=== PATIENT | female | born 1990 | race Caucasian/White ===

== ENCOUNTER 2022-09-19 09:12 | Inpatient (IN) | payer OTHER ==
[2022-09-19] MEDS ORDERED: SODIUM CHLORIDE 0.9% 1,000 ML IV STA (09:50)
[2022-09-19] MEDS ORDERED: ONDANSETRON 4 MG/2 ML VIAL IVP STA (09:50)
[2022-09-19] MEDS ORDERED: METOCLOPRAMIDE 5 MG/ML 2 ML VIAL IVP STA (10:18)
[2022-09-19] MEDS ORDERED: diphenhydrAMINE 50 MG/ML 1 ML VIAL IVP STA (10:18)
[2022-09-19 10:26] LABS: ALT 12 U/L (4-34); AST 19 U/L (14-36); African American GFR (CKD) >90 (>60 ml/min/1.73 sqM); Albumin 3.7 g/dL (3.5-5.0); Alkaline Phosphatase 47 U/L (38-126); Amylase 59 U/L (30-110); Anion Gap 13 mmol/L; Blood Urea Nitrogen 11 mg/dL (7-17); Calcium 8.6 mg/dL (8.4-10.2); Carbon Dioxide 18 mmol/L (22-30); Chloride 105 mmol/L (98-107); Glucose 207 mg/dL (74-99); Lipase 12 U/L (23-300); Non-African American GFR(CKD) >90 (>60 ml/min/1.73 sqM); Potassium 3.6 mmol/L (3.5-5.1); Sodium 136 mmol/L (137-145); Total Bilirubin 0.9 mg/dL (0.2-1.3); Total Protein 6.5 g/dL (6.3-8.2)
[2022-09-19 10:47] LABS: Basophils % (A) 0 %; Eosinophils % (A) 0 %; HCT 33.5 % (34.0-46.0); HGB 11.7 gm/dL (11.4-16.0); Lymphocytes % (A) 8 %; MCH 28.8 pg (25.0-35.0); MCHC 34.9 g/dL (31.0-37.0); MCV 82.5 fL (80.0-100.0); Mean Platelet Volume 8.6; Monocytes # (A) 0.2 k/uL (0-1.0); Monocytes % (A) 2 %; Neutrophils # (A) 11.3 k/uL (1.3-7.7); Neutrophils % (A) 90 %; Platelet Count 154 k/uL (150-450); RBC 4.06 m/uL (3.80-5.40); RDW 14.5 % (11.5-15.5); WBC 12.6 k/uL (3.8-10.6)
--- NOTE | 2022-09-19 11:35 | US ---
EXAMINATION TYPE: Transabdominal DATE OF EXAM: 09/19/2022 11:16 AM COMPARISON: NONE CLINICAL INDICATION: Female, 32 years old with history of pain; N/V EXAM PERFORMED: Transabdominal (TA) EXAM MEASUREMENTS: GESTATIONAL AGE / DATING Physician Established: Not yet established Dates by LMP: LMP unknown Dates by First Scan: No previous this is first scan Dates by Current Scan for: (13 weeks/3 days) EDC: 03/24/2023 MATERNAL ANATOMY Uterus: 15.3 x 6.9 x 12.2cm Right Ovary: 3.4 x 1.2 x 2.4cm Left Ovary: 3.6 x 2.2 x 2.3cm Post CDS / Adnexa: wnl Presence of free fluid: no Presence of corpus luteal cyst: not seen Presence of subchorionic bleed: no GESTATION / SURVEY CRL: 7.2cm (13 weeks/3 days) Yolk Sac (normal less than 6mm): not seen Heart Rate: 162 bpm Rhythm: Normal IUP: Viable IUP Single live intrauterine gestation. IMPRESSION: Single live intrauterine gestation with estimated gestational age of 13 weeks 3 days and estimated du e date of 03/24/2023.
[2022-09-19 12:31] LABS: Appearance,Urine Clear (Clear); Bilirubin,Urine Negative (Negative); Blood,Urine Negative (Negative); Color,Urine Yellow; Glucose,Urine (UA) 4+ (Negative); Leukocyte Esterase,Urine Negative (Negative); Mucus,Urine Rare /hpf; Nitrite,Urine Negative (Negative); Protein,Urine 1+ (Negative); RBC,Urine 1 /hpf (0-5); Specific Gravity,Urine 1.036 (1.001-1.035); Squamous Epithelial Cell,Urine 6 /hpf (0-4); Urobilinogen,Urine <2.0 mg/dL (<2.0); WBC,Urine 1 /hpf (0-5)
[2022-09-19 12:55] LABS: Ketones,Urine 4+ (Negative)
[2022-09-19] MEDS ORDERED: SODIUM CHLORIDE 0.9% 500 ML 500 ML IV STA (13:17)
--- NOTE | 2022-09-19 13:19 | ED ---
General Adult HPI - General Chief complaint: Nausea/Vomiting/Diarrhea Stated complaint: vomiting Time Seen by Provider: 09/19/22 09:27 Source: patient, EMS Mode of arrival: EMS Limitations: no limitations - History of Present Illness Initial comments: 32-year-old female with IDDM type 1 on insulin pump presents to the emergency room for a chief complaint of nausea vomiting. She is . Patient currently , she estimates about 2 months. Patient reports that she has had nausea and vomiting for about a week now. She also admits to discomfort throughout the whole abdomen. She denies any vaginal bleeding. States her blood sugars have been stable in the 200's. She was see at [facility], discharged home with Reglan which she has not yet taken. Patient has no other complaints at this time including shortness of breath, chest pain, abdominal pain, headache, or visual changes. - Related Data Previous Rx's Medication Instructions Recorded Citalopram Hydrobromide [CeleXA] 20 mg PO DAILY@1200 #30 tab 04/26/15 Ibuprofen [Motrin] 600 mg PO Q8HR PRN #15 tab 04/26/15 Allergies Allergy/AdvReac Type Severity Reaction Status Date / Time No Known Allergies Allergy Verified 04/24/15 16:11 Review of Systems ROS Statement: Those systems with pertinent positive or pertinent negative responses have been documented in the HPI. ROS Other: All systems not noted in ROS Statement are negative. Past Medical History Past Medical History: No Reported History Additional Past Medical History / Comment(s): Patient gave to a 23 week o ld in 2011 that shortly after . She also had an infant in 2013 for possible SIDS. History of Any Multi-Drug Resistant Organisms: None Reported Past Surgical History: Adenoidectomy, Section, Tonsillectomy Additional Past Surgical History / Comment(s): cyst removed from ovary Past Anesthesia/Blood Transfusion Reactions: No Reported Reaction Past Psychological History: Anxiety, Depression Past Alcohol Use History: Occasional Past Drug Use History: Marijuana - Past Family History Father Family Medical History: No Reported History Additional Family Medical History / Comment(s): Patient has no contact with her father. Mother Family Medical History: No Reported History Additional Family Medical History / Comment(s): Mother is alive at age 42 with no major medical problems. Brother(s) Additional Family Medical History / Comment(s): Patient has 2 brothers which were asthmaticus children. Patient has one sister that she has no contact with and one sister that is healthy. Patient currently has no living children. General Exam Limitations: no limitations General appearance: alert, in no apparent distress Head exam: Present: atraumatic Eye exam: Present: normal appearance, PERRL, EOMI. Absent: scleral icterus, conjunctival injection ENT exam: Present: normal exam, mucous membranes moist Neck exam: Present: normal inspection, full ROM. Absent: tenderness Respiratory exam: Present: normal lung sounds bilaterally. Absent: respiratory distress, wheezes Cardiovascular Exam: Present: regular rate, normal rhythm, normal heart sounds GI/Abdominal exam: Present: soft, normal bowel sounds. Absent: distended, tenderness Course Vital Signs 09/19/22 09/19/22 09:16 13:23 Temperature 97.2 F L Pulse Rate 88 91 Respiratory 18 18 Rate Blood Pressure 109/83 96/64 O2 Sat by Pulse 100 98 Oximetry Medical Decision Making - Medical Decision Making Vitals are stable. CBC shows a white count of 4.6 likely reactive to vomiting. CMP does show some dehydration with a CO2 of 18. Glucose stable at 207. 4+ glucose and ketones in the urine likely secondary to starvation ketosis given normal glucose and vitals. Ultrasound was obtained which shows a 13 week gestation. Patient has not seen OB yet but has an appointment on September 24 in [place]. Patient was given 1.5 L of fluid and nausea medicine. She is feeling better. She was able to tolerate by mouth intake. Case was discussed with Dr Rodriguez, [facility] physicians. At this time feels patient is a candidate for ou tpatient management with strict return parameters to the hospital for admission if symptoms worsen. Patient does have Reglan at home that she will start taking. She will continue to monitor her glucose. She will return here for worsening symptoms. Was pt. sent in by a medical professional or institution (, PA, MANAGER SUSTAINABILITY, urgent care, hospital, or prison...) When possible be specific @ -No Did you speak to anyone other than the patient for history (EMS, parent, family, police, friend...)? What history was obtained from this source @ -No Did you review nursing and triage notes (agree or disagree)? Why? @ -I reviewed and agree with nursing and triage notes Were old charts reviewed (outside hosp., previous admission, EMS record, old EKG, old radiological studies, urgent care reports/EKG's, prison records)? Report findings @ -No old charts were reviewed Differential Diagnosis (chest pain, altered mental status, abdominal pain women, abdominal pain men, vaginal bleeding, weakness, fever, dyspnea, syncope, headache, dizziness, GI bleed, back pain, seizure, CVA, palpatations, mental health)? @ -Differential Abdominal Pain Women: Appendicitis, Cholecystitis, diverticulosis, ischemic bowel, pancreatitis, hepatitis, UTI, gastroenteritis, AAA, incarcerated hernia, bowel obstruction, c onstipation, inflammatory bowel, hepatitis, peptic ulcer disease, splenic infarction, perforated viscus, vulvitis, ovarian torsion, PID, kidney stone, placenta abruption, miscarriage, ectopic this is not meant to be an all-inclusive list EKG interpreted by me (3pts min.). @ -As above X-rays interpreted by me (1pt min.). @ -None done CT interpreted by me (1pt min.). @ -None done U/S interpreted by me (1pt. min.). @ -OB US What testing was considered but not performed or refused? (CT, X-rays, U/S, labs)? Why? @ -None What meds were considered but not given or refused? Why? @ -opioids for pain, not given because of . Patient refused Zofran, preferred Reglan. Did you discuss the management of the patient with other professionals (professionals i.e. , PA, MANAGER SUSTAINABILITY, lab, RT, psych nurse, forensic social worker, warehouse stocker, teacher, special weapons and tactics officer, telephonic case manager)? Give summary @ -Dr Murillo, Dr Rodriguez Was smoking cessation discussed for >3mins.? @ -No Was critical care preformed (if so, how long)? @ -No Were there social determinants of health that impacted care today? How? (Homelessness, low income, unemployed, alcoholism, drug addiction, transportation, low edu. Level, literacy, decrease access to med. care, nursing home, rehab)? @ -No Was there de-escalation of care discussed even if they declined (Discuss DNR or withdrawal of care, Hospice)? DNR status @ -No What co-morbidities impacted this encounter? (DM, HTN, Smoking, COPD, CAD, Cancer, CVA, ARF, Chemo, Hep., AIDS, mental health diagnosis, sleep apnea, morbid obesity)? @ -DM Was patient admitted / discharged? Hospital course, mention meds given and route, prescriptions, significant lab abnormalities, going to OR and other pertinent info. @ -see above Undiagnosed new problem with uncertain prognosis? @ -No Drug Therapy requiring intensive monitoring for toxicity (Heparin, Nitro, Insulin, Cardizem)? @ -No Were any procedures done? @ -No Diagnosis/symptom? @ -dehydration, NV during Acute, or Chronic, or Acute on Chronic? @ -acute Uncomplicated (without systemic symptoms) or Complicated (systemic symptoms)? @ -complicated Side effects of treatment? @ -No Exacerbation, Progression, or Severe Exacerbation? @ -No Poses a threat to life or bodily function? How? (Chest pain, USA, NE, pneumonia, PE, COPD, DKA, ARF, appy, cholecystitis, CVA, Diverticulitis, Homicidal, Suicidal, threat to staff... and all critical care pts) @ -No - Lab Data Result diagrams: 09/19/22 10:03 09/19/22 10:03 Lab Results 09/19/22 09/19/22 09/19/22 Range/Units 10:03 10:03 10:03 WBC 12.6 H (3.8-10.6) k/uL RBC 4.06 (3.80-5.40) m/uL Hgb 11.7 (11.4-16.0) gm/dL Hct 33.5 L (34.0-46.0) % MCV 82.5 (80.0-100.0) fL MCH 28.8 (25.0-35.0) pg MCHC 34.9 (31.0-37.0) g/dL RDW 14.5 (11.5-15.5) % Plt Count 154 (150-450) k/uL MPV 8.6 Neutrophils % 90 % Lymphocytes % 8 % Monocytes % 2 % Eosinophils % 0 % Basophils % 0 % Neutrophils # 11.3 H (1.3-7.7) k/uL Lymphocytes # 1.0 (1.0-4.8) k/uL Monocytes # 0.2 (0-1.0) k/uL Eosinophils # 0.0 (0-0.7) k/uL Basophils # 0.0 (0-0.2) k/uL Sodium 136 L (137-145) mmol/L Potassium 3.6 (3.5-5.1) mmol/L Chloride 105 (98-107) mmol/L Carbon Dioxide 18 L (22-30) mmol/L Anion Gap 13 mmol/L BUN 11 (7-17) mg/dL Creatinine 0.34 L (0.52-1.04) mg/dL Est GFR (CKD-EPI)AfAm >90 (>60 ml/min/1.73 sqM) Est GFR (CKD-EPI)NonAf >90 (>60 ml/min/1.73 sqM) Glucose 207 H (74-99) mg/dL Calcium 8.6 (8.4-10.2) mg/dL Total Bilirubin 0.9 (0.2-1.3) mg/dL AST 19 (14-36) U/L ALT 12 (4-34) U/L Alkaline Phosphatase 47 (38-126) U/L Total Protein 6.5 (6.3-8.2) g/dL Albumin 3.7 (3.5-5.0) g/dL Amylase 59 (30-110) U/L Lipase 12 L (23-300) U/L HCG, Quant mIU/mL Urine Color Yellow Urine Appearance Clear (Clear) Urine pH 6.0 (5.0-8.0) Ur Specific [place] 1.036 H (1.001-1.035) Urine Protein 1+ H (Negative) Urine Glucose (UA) 4+ H (Negative) Urine Ketones 4+ H (Negative) Urine Blood Negative (Negative) Urine Nitrite Negative (Negative) Urine Bilirubin Negative (Negative) Urine Urobilinogen <2.0 (<2.0) mg/dL Ur Leukocyte Esterase Negative (Negative) Urine RBC 1 (0-5) /hpf Urine WBC 1 (0-5) /hpf Ur Squamous Epith Cells 6 H (0-4) /hpf Urine Mucus Rare H (None) /hpf 09/19/22 Range/Units 10:03 WBC (3.8-10.6) k/uL RBC (3.80-5.40) m/uL Hgb (11.4-16.0) gm/dL Hct (34.0-46.0) % MCV (80.0-100.0) fL MCH (25.0-35.0) pg MCHC (31.0-37.0) g/dL RDW (11.5-15.5) % Plt Count (150-450) k/uL MPV Neutrophils % % Lymphocytes % % Monocytes % % Eosinophils % % Basophils % % Neutrophils # (1.3-7.7) k/uL Lymphocytes # (1.0-4.8) k/uL Monocytes # (0-1.0) k/uL Eosinophils # (0-0.7) k/uL Basophils # (0-0.2) k/uL Sodium (137-145) mmol/L Potassium (3.5-5.1) mmol/L Chloride (98-107) mmol/L Carbon Dioxide (22-30) mmol/L Anion Gap mmol/L BUN (7-17) mg/dL Creatinine (0.52-1.04) mg/dL Est GFR (CKD-EPI)AfAm (>60 ml/min/1.73 sqM) Est GFR (CKD-EPI)NonAf (>60 ml/min/1.73 sqM) Glucose (74-99) mg/dL Calcium (8.4-10.2) mg/dL Total Bilirubin (0.2-1.3) mg/dL AST (14-36) U/L ALT (4-34) U/L Alkaline Phosphatase (38-126) U/L Total Protein (6.3-8.2) g/dL Albumin (3.5-5.0) g/dL Amylase (30-110) U/L Lipase (23-300) U/L HCG, Quant 251557.0 mIU/mL Urine Color Urine Appearance (Clear) Urine pH (5.0-8.0) Ur Specific [place] (1.001-1.035) Urine Protein (Negative) Urine Glucose (UA) (Negative) Urine Ketones (Negative) Urine Blood (Negative) Urine Nitrite (Negative) Urine Bilirubin (Negative) Urine Urobilinogen (<2.0) mg/dL Ur Leukocyte Esterase (Negative) Urine RBC (0-5) /hpf Urine WBC (0-5) /hpf Ur Squamous Epith Cells (0-4) /hpf Urine Mucus (None) /hpf Disposition Clinical Impression: Nausea and vomiting during , Dehydration Disposition: HOME SELF-CARE Condition: Good Instructions (If sedation given, give patient instructions): Hyperemesis Gravidarum (ED) Additional Instructions: Please follow up with PCP in 1-2 days. Please see your OBGYN at your scheduled appointment 09/24. Return to the ER for worsening symptoms. Is patient prescribed a controlled substance at d/c from ED?: No Referrals: Aime Fairchild MD [STAFF PHYSICIAN] - 1-2 days Time of Disposition: 14:21
[2022-09-19] MEDS ORDERED: NALOXONE 0.4 MG/ML 1 ML VIAL IV PRN (15:05)
[2022-09-19] MEDS: SODIUM CHLORIDE 0.9% 1,000 ML IV SCH ×2 (15:51→23:55)
[2022-09-19] MEDS ORDERED: DEXTROSE 50% SYRINGE 50 ML IVP PRN ×2 (15:55)
--- NOTE | 2022-09-19 16:43 | P.HPIM ---
History of Present Illness H&P Date: 09/19/22 Patient is a 32-year-old female with history of type 1 diabetes on insulin pump, depression presenting with severe nausea and vomiting. Patient is currently 13 weeks . She is unable to tolerate any oral intake. She claims that her nausea and vomiting started about 1 week. She has significant abdominal pain, chest pain with vomiting. She claims that she only has bowel movements every 2 weeks. She denies any urinary complaints. Her last meal was yesterday when she was able to tolerate eating a banana and some water. She denies any difficulty breathing, fevers, chills, recent travel history, or sick contacts. She normally uses her insulin pump, has a continuous glucose monitor, and bases her insulin on carbs intake as well as current blood sugars. Most of her blood sugar has been all over the place over the last week. In the ED, temperature was 97.2, pulse 88, respiratory rate 18, blood pressure 109/83, saturating at 100% on room air. WBC 12.6, platelet 154, hemoglobin 11.7, sodium 136, bicarbonate 18, creatinine 0.34, glucose 207, urine positive f or glucose and ketones. ultrasound shows single live intrauterine gestation estimated 13 weeks 3 days. Patient was given IV fluids in the ED, Reglan, Benadryl, and Zofran. Patient continues to have vomiting. Patient to be admitted for persistent nausea and vomiting, dehydration, inability to tolerate oral intake, will be will be consulted. Pertinent positives and negatives as discussed in HPI, a complete review of systems was performed and all other systems are negative. Patient seen and examined at bedside. Vital signs reviewed General: nontoxic, no distress, appears at stated age Derm: warm, dry Head: atraumatic, normocephalic, symmetric Eyes: EOMI, no lid lag, anicteric sclera, pupils equal round reactive to light ENT: Nose and ears atraumatic Neck: No thyromegaly, supple Mouth: no lip lesion, mucus membranes moist Cardiovascular: S1S2 reg, no murmur, no edema Lungs: clear to auscultation bilateral, no rhonchi, no rales, no wheeze, no accessory muscle use Abdominal: soft, nontender to palpation, no guarding, no appreciable organomegaly Ext: no gross muscle atrophy, muscle strength muscle strength 5 out of 5 in all 4 extremities, no contractures Neuro: CN II-XII grossly intact Psych: Alert, oriented, appropriate affect Assessment/Plan: Persistent nausea and vomiting High anion gap metabolic acidosis Ketoacidosis Type I diabetic, on insulin pump 13 weeks Leukocytosis, likely reactive -Nausea and vomiting possibly in the setting of first trimester or diabetic ketoacidosis -Sliding scale insulin every 4 hours, can be switched to insulin pump once nausea and vomiting better controlled and patient able to tolerate oral intake -Antiemetics as follows 10 mg IV Reglan every 8 hours as needed, Benadryl 25 mg IV every 2 hours as needed -OB consulted -Continue normal saline 1 30 mL an hour -Encourage oral intake The patient is admitted with an anticipated greater than 2 midnight stay as inpatient status for evaluation of nausea and vomiting. Surrogate decision-maker: Not identified CODE STATUS: Full code DVT prophylaxis: SCDs Anticipated discharge date: Pending clinical course Anticipated discharge place: pending clinical course A total of 65 minutes was spent on the care of this complex patient more than 50% of the time was spent in counseling and care coordination. Past Medical History Past Medical History: No Reported History Additional Past Medical History / Comment(s): Patient gave to a 23 week ol d in 2011 that shortly after . She also had an infant in 2013 for possible SIDS. History of Any Multi-Drug Resistant Organisms: None Reported Past Surgical History: Adenoidectomy, Section, Tonsillectomy Additional Past Surgical History / Comment(s): cyst removed from ovary Past Anesthesia/Blood Transfusion Reactions: No Reported Reaction Past Psychological History: Anxiety, Depression Past Alcohol Use History: Occasional Past Drug Use History: Marijuana - Past Family History Father Family Medical History: No Reported History Additional Family Medical History / Comment(s): Patient has no contact with her father. Mother Family Medical History: No Reported History Additional Family Medical History / Comment(s): Mother is alive at age 42 with no major medical problems. Brother(s) Additional Family Medical History / Comment(s): Patient has 2 brothers which were asthmaticus children. Patient has one sister that she has no contact with and one sister that is healthy. Patient currently has no living children. Medications and Allergies Home Medications Medication Instructions Recorded Confirmed Type Insulin Aspart (For Pump) [NovoLOG 0.01 unit SQ-PUMP CONTINUOUS 09/19/22 09/19/22 History (For Pump)] Allergies Allergy/AdvReac Type Severity Reaction Status Date / Time No Known Allergies Allergy Verified 09/19/22 15:36 Physical Exam Vitals: Vital Signs Temp Pulse Resp BP Pulse Ox 09/19/22 14:55 83 18 108/66 100 09/19/22 13:23 91 18 96/64 98 09/19/22 09:16 97.2 F L 88 18 109/83 100 Intake and Output 09/19/22 09/19/22 09/19/22 06:59 14:59 22:59 Other: Weight 49.895 kg Results CBC & Chem 7: 09/19/22 10:03 09/19/22 10:03 Labs: Abnormal Lab Results - Last 24 Hours (Table) 09/19/22 09/19/22 09/19/22 Range/Units 10:03 10:03 10:03 WBC 12.6 H (3.8-10.6) k/uL Hct 33.5 L (34.0-46.0) % Neutrophils # 11.3 H (1.3-7.7) k/uL Sodium 136 L (137-145) mmol/L Carbon Dioxide 18 L (22-30) mmol/L Creatinine 0.34 L (0.52-1.04) mg/dL Glucose 207 H (74-99) mg/dL Lipase 12 L (23-300) U/L Ur Specific [place] 1.036 H (1.001-1.035) Urine Protein 1+ H (Negative) Urine Glucose (UA) 4+ H (Negative) Urine Ketones 4+ H (Negative) Ur Squamous Epith Cells 6 H (0-4) /hpf Urine Mucus Rare H (None) /hpf
[2022-09-19 16:51] LABS: Glucose,Whole Blood 139 mg/dL (70-110)
[2022-09-19] MEDS: INSULIN ASPART (NovoLOG) 100 UNIT/ML VIAL SQ SCH ×2 (16:56→20:23)
[2022-09-19 18:50] LABS: Glucose,Whole Blood 123 mg/dL (70-110)
[2022-09-19] MEDS: METOCLOPRAMIDE 5 MG/ML 2 ML VIAL IVP PRN (19:06)
[2022-09-19] MEDS: diphenhydrAMINE 50 MG/ML 1 ML VIAL IVP PRN (19:06)
[2022-09-19 20:23] LABS: Glucose,Whole Blood 119 mg/dL (70-110)
[2022-09-20] MEDS: INSULIN ASPART (NovoLOG) 100 UNIT/ML VIAL SQ SCH ×6 (00:55→20:32)
[2022-09-20 00:56] LABS: Glucose,Whole Blood 119 mg/dL (70-110)
[2022-09-20] MEDS: METOCLOPRAMIDE 5 MG/ML 2 ML VIAL IVP PRN ×2 (03:05→15:48)
[2022-09-20] MEDS: diphenhydrAMINE 50 MG/ML 1 ML VIAL IVP PRN ×2 (03:05→15:45)
[2022-09-20] MEDS: SODIUM CHLORIDE 0.9% 1,000 ML IV SCH ×2 (03:06→15:53)
[2022-09-20 03:11] LABS: Glucose,Whole Blood 125 mg/dL (70-110)
[2022-09-20 08:46] LABS: Basophils % (A) 0 %; Eosinophils % (A) 0 %; HCT 30.2 % (34.0-46.0); HGB 10.7 gm/dL (11.4-16.0); Lymphocytes # (A) 1.2 k/uL (1.0-4.8); Lymphocytes % (A) 13 %; MCH 29.4 pg (25.0-35.0); MCHC 35.3 g/dL (31.0-37.0); MCV 83.2 fL (80.0-100.0); Mean Platelet Volume 8.7; Monocytes # (A) 0.4 k/uL (0-1.0); Monocytes % (A) 4 %; Neutrophils # (A) 7.2 k/uL (1.3-7.7); Neutrophils % (A) 81 %; Platelet Count 151 k/uL (150-450); RBC 3.62 m/uL (3.80-5.40); RDW 14.6 % (11.5-15.5); WBC 8.9 k/uL (3.8-10.6)
[2022-09-20 08:57] LABS: African American GFR (CKD) >90 (>60 ml/min/1.73 sqM); Anion Gap 8 mmol/L; Blood Urea Nitrogen 8 mg/dL (7-17); Carbon Dioxide 20 mmol/L (22-30); Chloride 105 mmol/L (98-107); Glucose 107 mg/dL (74-99); Non-African American GFR(CKD) >90 (>60 ml/min/1.73 sqM); Potassium 3.5 mmol/L (3.5-5.1); Sodium 133 mmol/L (137-145)
[2022-09-20 09:01] LABS: Glucose,Whole Blood 107 mg/dL (70-110)
[2022-09-20 11:52] LABS: Glucose,Whole Blood 114 mg/dL (70-110)
--- NOTE | 2022-09-20 11:59 | P.OBCN ---
History of Present Illness Consult date: 09/20/22 Requesting physician: Meir Rodriguez Reason for consult: early problem, other (Hyperemesis) Chief complaint: Nausea and vomiting for 1 week History of present illness: This is a 32-year-old female 3 para 1101 with a unknown last menstrual period and estimated gestational age of 13-4/7 weeks today based on ultrasound performed in ER yesterday who presents with complaints of nausea and vomiting for at least a week. She states she has not been able to hold anything down dur ing this time. She is also not having regular bowel movements. The patient did go to [facility] one day prior to admission here and received oral Reglan but did not even picked up her prescription and came straight to the emergency room here. She states she has been throwing up multiple times through the night however I do not see anything in her emesis basin currently. She states she tried some applesauce earlier but it came up. She tried to eat some sausage but it was too spicy. She states she is not even holding down liquids. When asked if her IV medications have been helping, she states nothing is helping. Patient does have an appointment to see a doctor at [address] in [place] for her first OB appointment on September 24 but does not know the name of the doctor. She also goes to the same office for her management of diabetes and sees a person named Bozena. She states she was more recently put on a insulin pump but has been diagnosed with type 1 diabetes about 3-4 years ago. She also states she has a history of anxiety and depression but has not been on medication more than a couple days at a time, stating she does not like to take medication. Obstetrical history: . History of a classical section in 2011 for P PROM at 23 weeks resulting in demise. History of repeat section at term and that baby of SIDS at 6 months old. Gynecologic history: She does have a history of chlamydia treated in the past per records in the portal. Review of Systems Constitutional: Reports fatigue, Reports poor appetite, Reports weakness Cardiovascular: Reports chest pain (When vomiting) Gastrointestinal: Reports abdominal pain, Reports constipation, Reports heartburn, Reports loss of appetite, Reports nausea, Reports vomiting Genitourinary: Reports pelvic pain, Reports , Denies abnormal vaginal bleeding Musculoskeletal: Denies myalgias Integumentary: Denies pruritus, Denies rash Psychiatric: Reports anxiety, Reports change in appetite, Reports depression Endocrine: Reports high blood sugars, Reports low blood sugars Past Medical History Past Medical History: Diabetes Mellitus (1) Additional Past Medical History / Comment(s): Patient gave to a 23 week old in 2011 that shortly after . She also had an infant in 2013 for possible SIDS. Type 1 DM. Anemia. History of Any Multi-Drug Resistant Organisms: None Reported Past Surgical History: Adenoidectomy, Section, Tonsillectomy Additional Past Surgical History / Comment(s): cyst removed from ovary Past Anesthesia/Blood Transfusion Reactions: No Reported Reaction Past Psychological History: Anxiety, Depression Smoking Status: Former smoker Past Alcohol Use History: None Reported Additional Drug Use History / Comment(s): Former marijuana and tobacco use before . - Past Family History Father Family Medical History: No Reported History Additional Family Medical History / Comment(s): Patient has no contact with her father. Mother Family Medical History: No Reported History Additional Family Medical History / Comment(s): Mother is alive with no major medical problems. Brother(s) Additional Family Medical History / Comment(s): Patient has 2 brothers which were asthmaticus children. Patient has one sister that she has no contact with and one sister that is healthy. Patient currently has no living children. Medications and Allergies Home Medications Medication Instructions Recorded Confirmed Type Insulin Aspart (For Pump) [NovoLOG 0.01 unit SQ-PUMP CONTINUOUS 09/19/22 09/19/22 History (For Pump)] Allergies Allergy/AdvReac Type Severity Reaction Status Date / Time No Known Allergies Allergy Verified 09/19/22 15:36 Exam Osteopathic Statement: *. No significant issues noted on an osteopathic structural exam other than those noted in the History and Physical/Consult. Vital Signs Temp Pulse Pulse Resp BP BP Pulse Ox 09/20/22 08:00 99.3 F 80 16 104/65 09/20/22 04:00 99.0 F 72 15 96/63 97 09/20/22 00:00 98.9 F 82 15 97/60 97 09/19/22 21:10 98.8 F 69 15 97/61 98 09/19/22 20:23 79 18 92/58 97 09/19/22 18:27 82 18 105/70 99 09/19/22 14:55 83 18 108/66 100 09/19/22 13:23 91 18 96/64 98 Intake and Output 09/19/22 09/20/22 09/20/22 22:59 06:59 14:59 Other: # Voids 1 1 Weight 49.895 kg Gen.: Thin-appearing female lying in bed, teary-eyed, weepy Abdomen: Soft, positive bowel sounds 4, minimal tenderness diffusely in her lower abdomen and upper abdomen, nontender over uterine fundus Extremities: Negative Homans Results Result Diagrams: 09/20/22 08:29 09/20/22 08:29 Abnormal Lab Results - Last 24 Hours (Table) 09/19/22 09/19/22 09/19/22 Range/Units 10:03 16:50 18:30 RBC (3.80-5.40) m/uL Hgb (11.4-16.0) gm/dL Hct (34.0-46.0) % Sodium (137-145) mmol/L Carbon Dioxide (22-30) mmol/L Creatinine (0.52-1.04) mg/dL Glucose (74-99) mg/dL POC Glucose (mg/dL) 139 H 123 H (70-110) mg/dL Calcium (8.4-10.2) mg/dL Ur Specific Irwin 1.036 H (1.001-1.035) Urine Protein 1+ H (Negative) Urine Glucose (UA) 4+ H (Negative) Urine Ketones 4+ H (Negative) Ur Squamous Epith Cells 6 H (0-4) /hpf Urine Mucus Rare H (None) /hpf 09/19/22 09/20/22 09/20/22 Range/Units 20:22 00:55 03:10 RBC (3.80-5.40) m/uL Hgb (11.4-16.0) gm/dL Hct (34.0-46.0) % Sodium (137-145) mmol/L Carbon Dioxide (22-30) mmol/L Creatinine (0.52-1.04) mg/dL Glucose (74-99) mg/dL POC Glucose (mg/dL) 119 H 119 H 125 H (70-110) mg/dL Calcium (8.4-10.2) mg/dL Ur Specific Irwin (1.001-1.035) Urine Protein (Negative) Urine Glucose (UA) (Negative) Urine Ketones (Negative) Ur Squamous Epith Cells (0-4) /hpf Urine Mucus (None) /hpf 09/20/22 09/20/22 Range/Units 08:29 08:29 RBC 3.62 L (3.80-5.40) m/uL Hgb 10.7 L (11.4-16.0) gm/dL Hct 30.2 L (34.0-46.0) % Sodium 133 L (137-145) mmol/L Carbon Dioxide 20 L (22-30) mmol/L Creatinine 0.37 L (0.52-1.04) mg/dL Glucose 107 H (74-99) mg/dL POC Glucose (mg/dL) (70-110) mg/dL Calcium 8.0 L (8.4-10.2) mg/dL Ur Specific Irwin (1.001-1.035) Urine Protein (Negative) Urine Glucose (UA) (Negative) Urine Ketones (Negative) Ur Squamous Epith Cells (0-4) /hpf Urine Mucus (None) /hpf Assessment and Plan (1) 13 weeks gestation of Current Visit: Yes Status: Acute Code(s): Z3A.13 - 13 WEEKS GESTATION OF SNOMED Code(s): 72554866 (2) Dehydration Current Visit: Yes Status: Acute Code(s): E86.0 - DEHYDRATION SNOMED Code(s): 34527591 (3) Ketoacidosis Current Visit: Yes Status: Acute Code(s): E87.29 - OTHER ACIDOSIS SNOMED Code(s): 81632288 (4) Nausea and vomiting during Current Visit: Yes Status: Acute Code(s): O21.9 - VOMITING OF , UNSPECIFIED SNOMED Code(s): 24154228 (5) Type 1 diabetes Current Visit: Yes Status: Acute Code(s): E10.9 - TYPE 1 DIABETES MELLITUS WITHOUT COMPLICATIONS SNOMED Code(s): 81997333 Plan: Agree with IV hydration and antiemetics. May try adding IV Pepcid. We'll try adding some Glucerna supplements to her diet. Patient is encouraged to at least try to eat something. Continue vitamin. Patient should follow-up with high risk maternal medicine in addition to her primary OB after discharge. I will follow with you. Psychiatric consult may be beneficial as I am not sure that some of these symptoms may related to her depression.
[2022-09-20] MEDS: FAMOTIDINE 20 MG/2 ML VIAL IV SCH (12:22)
--- NOTE | 2022-09-20 12:59 | P.PN ---
Subjective Progress Note Date: 09/20/22 Hospital Course: 32-year-old female with history of type 1 diabetes on insulin pump, depression presenting with severe nausea and vomiting. Patient is currently 13 weeks . In the ED, temperature was 97.2, pulse 88, respiratory rate 18, blood pressure 109/83, saturating at 100% on room air. WBC 12.6, platelet 154, hemoglobin 11.7, sodium 136, bicarbonate 18, creatinine 0.34, glucose 207, urine positive for glucose and ketones. ultrasound shows single live intrauterine gestation estimated 13 weeks 3 days. Patient was given IV fluids in the ED, Reglan, Benadryl, and Zofran. Patient continues to have vomiting. Patient to be admitted for persistent nausea and vomiting, dehydration, inability to tolerate oral intake, OB consulted. Subjective: Seen and examined at bedside. No acute events overnight. Continues to have nausea and vomiting, only able to tolerate minimal amounts of food. Continues to have some abdominal pain. Pertinent positives and negatives as discussed above, a complete review of systems was performed and all other systems are negative. Vitals Signs Reviewed. General: nontoxic, no distress, appears at stated age Derm: warm, dry Head: atraumatic, normocephalic, symmetric Eyes: EOMI, no lid lag, anicteric sclera, pupils equal round reactive to light ENT: Nose and ears atraumatic Neck: No thyromegaly, supple Mouth: no lip lesion, mucus membranes moist Cardiovascular: S1S2 reg, no murmur, no edema Lungs: clear to auscultation bilateral, no rhonchi, no rales, no wheeze, no accessory muscle use Abdominal: soft, nontender to palpation, no guarding, no appreciable organomegaly Ext: no gross muscle atrophy, muscle strength muscle strength 5 out of 5 in all 4 extremities, no contractures Neuro: CN II-XII grossly intact Psych: Alert, oriented, appropriate affect Data Reviewed Today: Pertinent Labs: WBC 8.9, hemoglobin 10.7, sodium 133, bicarbonate 20, creatinine 0.37, blood sugars range between 107-125. Assessment and Plan: Persistent nausea and vomiting High anion gap metabolic acidosis, resolved Ketoacidosis, likely starvation Type I diabetic, on insulin pump 13 weeks Leukocytosis, likely reactive, resolved -Nausea and vomiting possibly in the setting of or psychiatric in nature -OB note reviewed, also started on Pepcid 20 mg IV every 12 hours in addition to other antiemetics, continue IV fluids, will likely need maternal- medicine and highway landscape architect as an outpatient -Psychiatry consulted -Sliding scale insulin every 4 hours, can be switched to insulin pump once nausea and vomiting better controlled and patient able to tolerate oral intake -Antiemetics as follows 10 mg IV Reglan every 8 hours as needed, Benadryl 25 mg IV every 2 hours as needed -Continue normal saline 1 30 mL an hour -Encourage oral intake DVT ppx: SCDs Code status: Full code Anticipated discharge place: Home Anticipated discharge time: 1-2 days Objective - Vital Signs Vital signs: Vital Signs Temp 98.4 F 09/20/22 11:44 Pulse 66 09/20/22 11:44 Resp 16 09/20/22 11:44 BP 102/67 09/20/22 11:44 Pulse Ox 97 09/20/22 04:00 FiO2 Intake & Output 09/19/22 09/20/22 09/20/22 18:59 06:59 18:59 Weight 49.895 kg 49.895 kg Other: # Voids 1 - Labs CBC & Chem 7: 09/20/22 08:29 09/20/22 08:29 Labs: Abnormal Lab Results - Last 24 Hours (Table) 09/19/22 09/19/22 09/19/22 Range/Units 16:50 18:30 20:22 RBC (3.80-5.40) m/uL Hgb (11.4-16.0) gm/dL Hct (34.0-46.0) % Sodium (137-145) mmol/L Carbon Dioxide (22-30) mmol/L Creatinine (0.52-1.04) mg/dL Glucose (74-99) mg/dL POC Glucose (mg/dL) 139 H 123 H 119 H (70-110) mg/dL Calcium (8.4-10.2) mg/dL 09/20/22 09/20/22 09/20/22 Range/Units 00:55 03:10 08:29 RBC 3.62 L (3.80-5.40) m/uL Hgb 10.7 L (11.4-16.0) gm/dL Hct 30.2 L (34.0-46.0) % Sodium (137-145) mmol/L Carbon Dioxide (22-30) mmol/L Creatinine (0.52-1.04) mg/dL Glucose (74-99) mg/dL POC Glucose (mg/dL) 119 H 125 H (70-110) mg/dL Calcium (8.4-10.2) mg/dL 09/20/22 09/20/22 Range/Units 08:29 11:49 RBC (3.80-5.40) m/uL Hgb (11.4-16.0) gm/dL Hct (34.0-46.0) % Sodium 133 L (137-145) mmol/L Carbon Dioxide 20 L (22-30) mmol/L Creatinine 0.37 L (0.52-1.04) mg/dL Glucose 107 H (74-99) mg/dL POC Glucose (mg/dL) 114 H (70-110) mg/dL Calcium 8.0 L (8.4-10.2) mg/dL
[2022-09-20 15:38] LABS: Glucose,Whole Blood 116 mg/dL (70-110)
[2022-09-20 20:33] LABS: Glucose,Whole Blood 102 mg/dL (70-110)
[2022-09-21] MEDS: METOCLOPRAMIDE 5 MG/ML 2 ML VIAL IVP PRN (00:01)
[2022-09-21] MEDS: FAMOTIDINE 20 MG/2 ML VIAL IV SCH ×2 (00:01→11:37)
[2022-09-21] MEDS: diphenhydrAMINE 50 MG/ML 1 ML VIAL IVP PRN ×2 (00:01→21:01)
[2022-09-21] MEDS: INSULIN ASPART (NovoLOG) 100 UNIT/ML VIAL SQ SCH ×7 (00:04→21:55)
[2022-09-21 00:06] LABS: Glucose,Whole Blood 120 mg/dL (70-110)
[2022-09-21] MEDS: SODIUM CHLORIDE 0.9% 1,000 ML IV SCH ×4 (00:40→21:35)
[2022-09-21 04:12] LABS: Glucose,Whole Blood 111 mg/dL (70-110)
[2022-09-21 08:35] LABS: Glucose,Whole Blood 107 mg/dL (70-110)
--- NOTE | 2022-09-21 11:33 | P.PN ---
Progress Note - Text Progress Note Date: 09/21/22 Patient seen again today. She states that nothing is helping and she "just wants to feel better". She has refused her Pepcid and Reglan and Benadryl today. She says it doesn't work. She only received 1 dose of Pepcid at the time she refused. She has not been eating anything offered tray. She stated she tried the Glucerna a small amount yesterday but threw it up. Her tray is in front of her and she is not eating anything off of her tray so far this morning. I asked the patient if she felt that some of this is due to her anxiety or depression and she denies that. I reiterated the importance of at least trying to eat a little bit of the time even if she does throw it up later. I advised her that if she continues to not eat, she will need a transfer to a higher level facility where they have high risk obstetrics and she can receive TPN nutrients. I do agree with psychiatric consultation. After discussion with the patient this morning, she agrees to take the IV Pepcid this morning. We will also start her on a vitamin.
[2022-09-21 11:57] LABS: Glucose,Whole Blood 96 mg/dL (70-110)
--- NOTE | 2022-09-21 13:48 | P.PN ---
Subjective Progress Note Date: 09/21/22 Hospital Course: 32-year-old female with history of type 1 diabetes on insulin pump, depression presenting with severe nausea and vomiting. Patient is currently 13 weeks . In the ED, temperature was 97.2, pulse 88, respiratory rate 18, blood pressure 109/83, saturating at 100% on room air. WBC 12.6, platelet 154, hemoglobin 11.7, sodium 136, bicarbonate 18, creatinine 0.34, glucose 207, urine positive for glucose and ketones. ultrasound shows single live intrauterine gestation estimated 13 weeks 3 days. Patient was given IV fluids in the ED, Reglan, Benadryl, and Zofran. Patient continues to have vomiting. Patient to be admitted for persistent nausea and vomiting, dehydration, inability to tolerate oral intake, OB consulted. Patient continues to complain about significant nausea and vomiting, but not taking her medications. Blood sugars have been well controlled. Psychiatry consulted as they may be a component of depression/anxiety. Subjective: Seen and examined at bedside. No acute events overnight. Continues to have nausea and vomiting, but not taking any medications. Continues to have some abdominal pain. Pertinent positives and negatives as discussed above, a complete review of systems was performed and all other systems are negative. Vitals Signs Reviewed. General: nontoxic, no distress, appears at stated age Derm: warm, dry Head: atraumatic, normocephalic, symmetric Eyes: EOMI, no lid lag, anicteric sclera, pupils equal round reactive to light ENT: Nose and ears atraumatic Neck: No thyromegaly, supple Mouth: no lip lesion, mucus membranes moist Cardiovascular: S1S2 reg, no murmur, no edema Lungs: clear to auscultation bilateral, no rhonchi, no rales, no wheeze, no accessory muscle use Abdominal: soft, nontender to palpation, no guarding, no appreciable organomegaly Ext: no gross muscle atrophy, muscle strength muscle strength 5 out of 5 in all 4 extremities, no contractures Neuro: CN II-XII grossly intact Psych: Alert, oriented, appropriate affect Data Reviewed Today: Pertinent Labs: Blood sugars range between 96-120 Assessment and Plan: Persistent nausea and vomiting High anion gap metabolic acidosis, resolved Ketoacidosis, likely starvation Type I diabetic, on insulin pump at home 13 weeks Leukocytosis, likely reactive, resolved -Nausea and vomiting possibly psychiatric in nature -Spoke directly with OB, patient not taking medications, encourage oral intake, may need high-risk OB if patient continues to refuse to eat -Psychiatry consulted -Sliding scale insulin changed to every 6 hours, can be switched to insulin pump once nausea and vomiting better controlled and patient able to tolerate oral intake -Antiemetics as follows 10 mg IV Reglan every 8 hours as needed, Benadryl 25 mg IV every 2 hours as needed -Continue normal saline 1 30 mL an hour -Encourage oral intake DVT ppx: SCDs Code status: Full code Anticipated discharge place: Home Anticipated discharge time: 1-2 days Objective - Vital Signs Vital signs: Vital Signs Temp 98.5 F 09/21/22 11:50 Pulse 60 09/21/22 11:50 Resp 16 09/21/22 11:50 BP 118/76 09/21/22 11:50 Pulse Ox 98 09/21/22 04:00 FiO2 Intake & Output 09/20/22 09/21/22 09/21/22 18:59 06:59 18:59 Intake Total 20 Output Total 75 Balance 20 -75 Intake: Oral 20 Output: Emesis 75 Other: # Voids 1 1 - Labs CBC & Chem 7: 09/20/22 08:29 09/20/22 08:29 Labs: Abnormal Lab Results - Last 24 Hours (Table) 09/20/22 09/21/22 09/21/22 Range/Units 15:35 00:04 04:12 POC Glucose (mg/dL) 116 H 120 H 111 H (70-110) mg/dL
[2022-09-21 16:14] LABS: Glucose,Whole Blood 99 mg/dL (70-110)
[2022-09-21] MEDS: PRENATAL VIT-IRON-FOLIC ACID 1 EACH TABLET PO SCH (16:18)
[2022-09-21] MEDS: PROCHLORPERAZINE SUPPOSITORY 25 MG SUPP RECTAL PRN (16:34)
[2022-09-21 20:44] LABS: Glucose,Whole Blood 112 mg/dL (70-110)
--- NOTE | 2022-09-21 21:07 | P.CN ---
Psychiatric Consult - . Consult date: 09/21/22 Consult:: IDENTIFYING DATA: This patient is a 32-year-old female with a unknown last menstrual period and estimated gestational age of 13-5/7 weeks with nausea and vomiting, who is currently noncompliant with treatment and depressed. REASON FOR REFERRAL: Psychiatry was consulted for "nausea and vomitting possibly psychiatric in nature, patient" HISTORY OF PRESENT ILLNESS: The patient presented to the hospital on 09/19/2022 due to persistent nausea and vomiting. She has been intermittently refusing Reglan and Benadryl due to her belief they are not helping her. On my assessment, patient is laying in bed in the position. She is using her pink bin to vomit. She has not eaten her breakfast or her lunch so far today due to not being able to keep her meals down. She appears to be utilizing maladaptive coping in response to her current stressors, appears regressed, answers most questions with "I don't know" and "nothing helps". She admits to depressed mood and anxiety. She is not currently on any psychiatric medications and does not have psychiatric follow-up. At this time patient denies any suicidal or homicidal ideation, intent or plan. Patient denies any auditory, visual hallucinations and denies any paranoia or delusions. Patients denies drug, alcohol or tobacco use. No UDS was completed on this admission. She has poor social supports. She reports this was an unplanned . She reports she would be happy about the if she wasn't sick all the time. She is single but reports the father of the child is involved. She has a history of giving to a 23-week-old infant in 2011 that shortly after , and also an infant from SIDS in 2013. PAST PSYCHIATRIC HISTORY: Patient has a a history of depression and anxiety. Patient denies being on any psychiatric medications. Previously tried on SSRIs but does not remember the names or the outcome. Per records, she was previously prescribed Celexa and was also diagnosed with alcohol use disorder. Patient was previously hospitalized on [facility] once before. Patient denies any psychiatric outpatient follow-up. Patient denies any history of suicide attempts in the past. PAST MEDICAL HISTORY: Past Medical History: No Reported History Additional Past Medical History / Comment(s): Patient gave to a 23 week old in 2011 that shortly after . She also had an in 2013 for possible SIDS. History of Any Multi-Drug Resistant Organisms: None Reported Past Surgical History: Adenoidectomy, Section, Tonsillectomy Additional Past Surgical History / Comment(s): cyst removed from ovary Past Anesthesia/Blood Transfusion Reactions: No Reported Reaction Past Psychological History: Anxiety, Depression Past Alcohol Use History: Occasional Past Drug Use History: Marijuana ALLERGIES: as per EMR. CHEMICAL DEPENDENCY HISTORY: as per HPI. FAMILY PSYCHIATRIC/SUBSTANCE USE HISTORY: Not known at this time SOCIAL HISTORY: Patient was born and raised in [place]. Father is . She lives with her mother and grandmother, however she has not been in touch with them during this hospitalization and none have visited. She has 2 sisters and 2 brothers, reports they're not really close. He has poor social supports. She is single, however she reports the father of the child is involved. MENTAL STATUS EXAM: General Appearance: Patient appears to be stated age, is laying in bed covered in blanket. Patient appears to have fair hygiene and grooming, with fair eye contact. Behavior: Patient is lying in bed without any agitated behavior, but is tearful at times. Speech: Patient's speech is fluent and non-pressured. Mood/Affect: Patient reports their mood is depressed, affect is labile Suicidality/Homicidality: Patient denies having any suicidal or homicidal ideation intent or plan. Perceptions: Patient denies any visual hallucinations and denies any auditory hallucinations. Though content/process: There is no evidence of any delusional thought content and thought process is linear and goal-directed. Memory and concentration: AOX3, grossly intact for the purposes of this session. Judgment and insight: poor IMPRESSIONS: Unspecified depressive disorder, likely MDD Unspecified anxiety disorder PLAN: -At this time patient DOES NOT meet criteria for inpatient psychiatric admission. -Delirium precautions recommended with patient including - avoiding use of narcotics and TECHNOLOGY APPLICATIONS TEACHER sedatives, limit anticholinergic medications when possible, frequent re-orientation, minimize use of restraints, open window shades during the day and close them at night -Would recommend the following medication changes/additions: Will start patient on low dose Zoloft 25 mg daily for anxiety/depression, with plan to slowly titrate as tolerated. -Recommend urine drug screen since one was not completed on admission. -Continue to treat nausea/vomiting as tolerated with giving patient choice of antiemetic cocktail. -Continue to reassess safety and utilize 1:1 sitter if safety concerns arise. -Communicated plan to patient's nurse and Dr. Rodriguez. If patient continues to have poor oral intake, then patient will be transferred to higher level of care. -Will continue to follow along -Please contact with any questions. 09/21/22 14:06 09/21/22 20:48 09/21/22 21:07
[2022-09-21] MEDS: SERTRALINE 25 MG TAB PO SCH (21:35)
[2022-09-22] MEDS: SODIUM CHLORIDE 0.9% 1,000 ML IV SCH ×3 (01:33→17:24)
[2022-09-22] MEDS: FAMOTIDINE 20 MG/2 ML VIAL IV SCH ×2 (06:43→21:33)
[2022-09-22] MEDS: PRENATAL VIT-IRON-FOLIC ACID 1 EACH TABLET PO SCH (07:35)
[2022-09-22] MEDS: INSULIN ASPART (NovoLOG) 100 UNIT/ML VIAL SQ SCH ×4 (07:38→21:46)
[2022-09-22 07:41] LABS: Glucose,Whole Blood 99 mg/dL (70-110)
[2022-09-22] MEDS: PROCHLORPERAZINE SUPPOSITORY 25 MG SUPP RECTAL PRN ×2 (07:56→21:19)
--- NOTE | 2022-09-22 09:11 | P.PN ---
Progress Note - Text Progress Note Date: 09/22/22 Patient seen today. She states she just got her Compazine suppository and did take the Pepcid this morning. She is going to give it some time and then try to eat a little something. She stated she did try to eat something yesterday but threw it back up but did not state what she ate. She is refusing the Zoloft. Today she is a little less teary-eyed and does seem more willing to at least try things. She still has not eaten anything for well over a week. My recommendation is that if she is unable to hold anything down or attempt to eat anything today, she should be transferred to a higher [facility] [place] [facility].
--- NOTE | 2022-09-22 11:40 | P.PN ---
Subjective Progress Note Date: 09/22/22 Hospital Course: 32-year-old female with history of type 1 diabetes on insulin pump, depression presenting with severe nausea and vomiting. Patient is currently 13 weeks . In the ED, temperature was 97.2, pulse 88, respiratory rate 18, blood pressure 109/83, saturating at 100% on room air. WBC 12.6, platelet 154, hemoglobin 11.7, sodium 136, bicarbonate 18, creatinine 0.34, glucose 207, urine positive for glucose and ketones. ultrasound shows single live intrauterine gestation estimated 13 weeks 3 days. Patient was given IV fluids in the ED, Reglan, Benadryl, and Zofran. Patient continues to have vomiting. Patient to be admitted for persistent nausea and vomiting, dehydration, inability to tolerate oral intake, OB consulted. Patient continues to complain about significant nausea and vomiting, but not taking her medications. Blood sugars have been well controlled. Psychiatry consulted as they may be a component of depression/anxiety. Patient still refusing to take her medications. Subjective: Seen and examined at bedside. No acute events overnight. Continues to have nausea and vomiting, but not taking any medications. Continues to have some abdominal pain. Pertinent positives and negatives as discussed above, a complete review of systems was performed and all other systems are negative. Vitals Signs Reviewed. General: nontoxic, no distress, appears at stated age Derm: warm, dry Head: atraumatic, normocephalic, symmetric Eyes: EOMI, no lid lag, anicteric sclera, pupils equal round reactive to light ENT: Nose and ears atraumatic Neck: No thyromegaly, supple Mouth: no lip lesion, mucus membranes moist Cardiovascular: S1S2 reg, no murmur, no edema Lungs: clear to auscultation bilateral, no rhonchi, no rales, no wheeze, no accessory muscle use Abdominal: soft, nontender to palpation, no guarding, no appreciable organomegaly Ext: no gross muscle atrophy, muscle strength muscle strength 5 out of 5 in all 4 extremities, no contractures Neuro: CN II-XII grossly intact Psych: Alert, oriented, appropriate affect Data Reviewed Today: Pertinent Labs: Blood sugars range between 99-112 Assessment and Plan: Persistent nausea and vomiting High anion gap metabolic acidosis, resolved Ketoacidosis, likely starvation Type I diabetic, on insulin pump at home 13 weeks Leukocytosis, likely reactive, resolved Likely major depressive disorder -Nausea and vomiting possibly psychiatric in nature -OB note reviewed, continue antibiotics, if patient unable to tolerate intake, may need to be transferred to different facility for high school science teacher, and MSM -Psychiatry note reviewed from 09/22, patient started on Zoloft, but she is refus ing to take it -Sliding scale insulin every 6 hours, can be switched to insulin pump once nausea and vomiting better controlled and patient able to tolerate oral intake -Antiemetics as follows Benadryl 25 mg IV every 2 hours as needed, Pepcid 20 mg IV every 12 hours, rectal Compazine as needed -Continue normal saline 1 30 mL an hour -Encourage oral intake DVT ppx: SCDs Code status: Full code Anticipated discharge place: Pending clinical course Anticipated discharge time: Pending clinical course Objective - Vital Signs Vital signs: Vital Signs Temp 99.2 F 09/22/22 07:35 Pulse 78 09/22/22 07:35 Resp 16 09/22/22 07:35 BP 114/72 09/22/22 07:35 Pulse Ox 96 09/21/22 16:00 FiO2 Intake & Output 09/21/22 09/22/22 09/22/22 18:59 06:59 18:59 Output Total 525 Balance -525 Output: Urine 350 Emesis 175 Other: # Voids 2 - Labs CBC & Chem 7: 09/20/22 08:29 09/20/22 08:29 Labs: Abnormal Lab Results - Last 24 Hours (Table) 09/21/22 Range/Units 20:43 POC Glucose (mg/dL) 112 H (70-110) mg/dL
[2022-09-22 11:59] LABS: Glucose,Whole Blood 131 mg/dL (70-110)
--- NOTE | 2022-09-22 13:59 | P.PN ---
Progress Note - Text Progress Note Date: 09/22/22 Interval History: Patient was seen resting in bed and was directable and agreeable to speak with senior grant writer in her room. Currently, the patient is not endorsing any suicidal or homicidal ideation, intention, and/or plan. The patient states that she made suicidal statements however she has no intention to hurt herself. She expresses that she feels like no one is helping her. She was confronted with this belief as the patient is currently receiving treatment and care however she is not cooperating with any medications or recommendations by staff. After reflective listening, the patient states that she will try to shower today and engage in behavioral activation. This provider acknowledged her nausea and vomiting as severe and her feelings were validated. The patient states that one week prior to this admission, she did not experience severe nausea and had no concerns regarding her general mood. She is not reporting any auditory or visual hallucinations. She is not reporting any paranoia or other delusions. She does express a desire to go forward with the . She does express concern about Zoloft causing defects. We discussed at length that maternal care leads to the best outcomes for the child. She is in agreement to continue with her antidepressant and will attempt to take the medication. We also discussed at length the possibility of inpatient psychiatric admission. Patient is vehemently against this idea. She expresses a strong desire to live for herself and for her family. Mental Status Exam: General Appearance: Patient appears to be stated age is alert, directable, and cooperative. Behavior: Patient is currently regurgitating phlegm and spit during the interview. She cries intermittently throughout the interview. Speech: Patient's speech is fluent and nonpressured. Repetitive. Mood/Affect: Mood is "I feels so terrible," affect is malaised and tearful. Suicidality/Homicidality: Patient is not endorsing any suicidal or homicidal ideation, intention, &/or plan. Perceptions: Patient denies any visual hallucinations and denies any auditory hallucinations Though content/process: There is no evidence of any delusional thought content and thought process is linear and goal-directed. Memory and concentration: AOX3, grossly intact for the purposes of this session Judgment and insight: Poor Vital Signs Temp 98.5 F 09/22/22 11:54 Pulse 66 09/22/22 11:54 Resp 16 09/22/22 11:54 BP 109/76 09/22/22 11:54 Pulse Ox 96 09/21/22 16:00 FiO2 Intake & Output 09/21/22 09/22/22 09/22/22 18:59 06:59 18:59 Output Total 525 100 Balance -525 -100 Output: Urine 350 Emesis 175 100 Other: # Voids 2 Laboratory Results WBC 8.9 k/uL (3.8-10.6) 09/20/22 08:29 RBC 3.62 m/uL (3.80-5.40) L 09/20/22 08:29 Hgb 10.7 gm/dL (11.4-16.0) L 09/20/22 08:29 Hct 30.2 % (34.0-46.0) L 09/20/22 08:29 MCV 83.2 fL (80.0-100.0) 09/20/22 08:29 MCH 29.4 pg (25.0-35.0) 09/20/22 08:29 MCHC 35.3 g/dL (31.0-37.0) 09/20/22 08:29 RDW 14.6 % (11.5-15.5) 09/20/22 08:29 Plt Count 151 k/uL (150-450) 09/20/22 08:29 MPV 8.7 09/20/22 08:29 Neutrophils % 81 % 09/20/22 08:29 Lymphocytes % 13 % 09/20/22 08:29 Monocytes % 4 % 09/20/22 08:29 Eosinophils % 0 % 09/20/22 08:29 Basophils % 0 % 09/20/22 08:29 Neutrophils # 7.2 k/uL (1.3-7.7) 09/20/22 08:29 Lymphocytes # 1.2 k/uL (1.0-4.8) 09/20/22 08:29 Monocytes # 0.4 k/uL (0-1.0) 09/20/22 08:29 Eosinophils # 0.0 k/uL (0-0.7) 09/20/22 08:29 Basophils # 0.0 k/uL (0-0.2) 09/20/22 08:29 Sodium 133 mmol/L (137-145) L 09/20/22 08:29 Potassium 3.5 mmol/L (3.5-5.1) 09/20/22 08:29 Chloride 105 mmol/L (98-107) 09/20/22 08:29 Carbon Dioxide 20 mmol/L (22-30) L 09/20/22 08:29 Anion Gap 8 mmol/L 09/20/22 08:29 BUN 8 mg/dL (7-17) 09/20/22 08:29 Creatinine 0.37 mg/dL (0.52-1.04) L 09/20/22 08:29 Est GFR (CKD-EPI)AfAm >90 (>60 ml/min/1.73 sqM) 09/20/22 08:29 Est GFR (CKD-EPI)NonAf >90 (>60 ml/min/1.73 sqM) 09/20/22 08:29 Glucose 107 mg/dL (74-99) H 09/20/22 08:29 POC Glucose (mg/dL) 131 mg/dL (70-110) H 09/22/22 11:53 POC Glu Manager Sterile Processing ID Grace Huber 09/22/22 11:53 Calcium 8.0 mg/dL (8.4-10.2) L 09/20/22 08:29 Total Bilirubin 0.9 mg/dL (0.2-1.3) 09/19/22 10:03 AST 19 U/L (14-36) 09/19/22 10:03 ALT 12 U/L (4-34) 09/19/22 10:03 Alkaline Phosphatase 47 U/L (38-126) 09/19/22 10:03 Total Protein 6.5 g/dL (6.3-8.2) 09/19/22 10:03 Albumin 3.7 g/dL (3.5-5.0) 09/19/22 10:03 Amylase 59 U/L (30-110) 09/19/22 10:03 Lipase 12 U/L (23-300) L 09/19/22 10:03 HCG, Quant 712298.0 mIU/mL 09/19/22 10:03 Urine Color Yellow 09/19/22 10:03 Urine Appearance Clear (Clear) 09/19/22 10:03 Urine pH 6.0 (5.0-8.0) 09/19/22 10:03 Ur Specific Spring 1.036 (1.001-1.035) H 09/19/22 10:03 Urine Protein 1+ (Negative) H 09/19/22 10:03 Urine Glucose (UA) 4+ (Negative) H 09/19/22 10:03 Urine Ketones 4+ (Negative) H 09/19/22 10:03 Urine Blood Negative (Negative) 09/19/22 10:03 Urine Nitrite Negative (Negative) 09/19/22 10:03 Urine Bilirubin Negative (Negative) 09/19/22 10:03 Urine Urobilinogen <2.0 mg/dL (<2.0) 09/19/22 10:03 Ur Leukocyte Esterase Negative (Negative) 09/19/22 10:03 Urine RBC 1 /hpf (0-5) 09/19/22 10:03 Urine WBC 1 /hpf (0-5) 09/19/22 10:03 Ur Squamous Epith Cells 6 /hpf (0-4) H 09/19/22 10:03 Urine Mucus Rare /hpf (None) H 09/19/22 10:03 Acetone, Qual Positive (Negative) 09/19/22 10:03 Assessment Hyperemesis Depressive disorder secondary to general medical condition Plan: -At this time patient DOES NOT meet criteria for inpatient psychiatric admission. We will continue to monitor should the patient continues to have very poor oral intake and lack of care to self. -Delirium precautions recommended with patient including - avoiding use of narcotics and HOSTESS PARTY SALES REPRESENTATIVE sedatives, limit anticholinergic medications when possible, frequent re-orientation, minimize use of restraints, open window shades during the day and close them at night -Would recommend the following medication changes/additions: Continue Zoloft 25 mg daily for anxiety/depression, with plan to slowly titrate as tolerated. Encouraged warm shower to address nausea. -Continue to treat nausea/vomiting as tolerated with giving patient choice of antiemetic cocktail. -Continue to reassess safety and utilize 1:1 sitter if safety concerns arise. Patient does not appear to require one-to-one at this time. -Communicated plan to patient's nurse. If patient continues to have poor oral intake, then patient will be transferred to higher level of care. -Will continue to follow along -Please contact with any questions.
[2022-09-22 17:24] LABS: Glucose,Whole Blood 130 mg/dL (70-110)
[2022-09-22] MEDS: SERTRALINE 25 MG TAB PO SCH (21:22)
[2022-09-23] MEDS: SODIUM CHLORIDE 0.9% 1,000 ML IV SCH ×2 (01:09→16:50)
[2022-09-23 07:29] LABS: Glucose,Whole Blood 161 mg/dL (70-110)
[2022-09-23 07:48] VITALS: RESP 16
[2022-09-23] MEDS: PRENATAL VIT-IRON-FOLIC ACID 1 EACH TABLET PO SCH (07:49)
[2022-09-23] MEDS: INSULIN ASPART (NovoLOG) 100 UNIT/ML VIAL SQ SCH ×2 (07:49→13:36)
[2022-09-23] MEDS: FAMOTIDINE 20 MG/2 ML VIAL IV SCH (08:31)
[2022-09-23 08:41] LABS: Basophils % (A) 0 %; Eosinophils % (A) 0 %; HGB 12.8 gm/dL (11.4-16.0); Lymphocytes # (A) 1.5 k/uL (1.0-4.8); Lymphocytes % (A) 19 %; MCH 29.9 pg (25.0-35.0); MCHC 34.7 g/dL (31.0-37.0); MCV 86.1 fL (80.0-100.0); Monocytes # (A) 0.5 k/uL (0-1.0); Monocytes % (A) 6 %; Neutrophils # (A) 6.2 k/uL (1.3-7.7); Neutrophils % (A) 74 %; Platelet Count 230 k/uL (150-450); RDW 14.6 % (11.5-15.5); WBC 8.3 k/uL (3.8-10.6)
--- NOTE | 2022-09-23 09:07 | P.PN ---
Progress Note - Text Progress Note Date: 09/23/22 Patient states she still has not been able to hold anything down. She did state she tried a few apples and they came right back up. She did refuse her Compazine suppository this morning and she has refused Zoloft. I spoke with internal medicine service and they are planning to try to transfer today to a higher level facility that has a high risk obstetrical unit. I am in agreement with this plan and patient is also in agreement with this plan.
[2022-09-23 09:20] LABS: African American GFR (CKD) >90 (>60 ml/min/1.73 sqM); Anion Gap 15 mmol/L; Blood Urea Nitrogen 4 mg/dL (7-17); Calcium 8.1 mg/dL (8.4-10.2); Carbon Dioxide 14 mmol/L (22-30); Chloride 100 mmol/L (98-107); Glucose 160 mg/dL (74-99); Non-African American GFR(CKD) >90 (>60 ml/min/1.73 sqM); Potassium 3.4 mmol/L (3.5-5.1); Sodium 129 mmol/L (137-145)
[2022-09-23 12:35] LABS: Glucose,Whole Blood 150 mg/dL (70-110)
[2022-09-23 12:49] LABS: Glucose,Whole Blood 144 mg/dL (70-110)
[2022-09-23 13:38] VITALS: BP 112/75; PULSE 71; TEMP 98.9
--- NOTE | 2022-09-23 13:52 | P.PN ---
Progress Note - Text Progress Note Date: 09/23/22 Interval History: Patient was seen resting in bed and was directable and agreeable to speak with parts data writer in her room. Currently, the patient is not endorsing any suicidal or homicidal ideation, intention, and/or plan. She does not endorse any auditory or visual hallucinations. The patient does admit that she defecated herself and because of this, she did take a shower. She continues to be very dysphoric and is expressing a desire to get better however continues to be nonadherent with food or medications. Mental Status Exam: General Appearance: Patient appears to be stated age is alert, directable, and cooperative. Behavior: Patient is crying throughout the interview. She was initially observed, and restful. Speech: Patient's speech is fluent and nonpressured. Loud in volume. Mood/Affect: Mood is "I am trying to feel better," affect is tearful. Suicidality/Homicidality: Patient is not endorsing any suicidal or homicidal ideation, intention, &/or plan. Perceptions: Patient denies any visual hallucinations and denies any auditory hallucinations Though content/process: There is no evidence of any delusional thought content and thought process is linear and goal-directed. Memory and concentration: AOX3, grossly intact for the purposes of this session Judgment and insight: Fair Vital Signs Temp 98.9 F 09/23/22 13:37 Pulse 71 09/23/22 13:37 Resp 16 09/23/22 13:37 BP 112/75 09/23/22 13:37 Pulse Ox 98 09/23/22 13:37 FiO2 Intake & Output 09/22/22 09/23/22 09/23/22 18:59 06:59 18:59 Intake Total 340 Output Total 100 150 Balance -100 190 Intake: Oral 340 Output: Emesis 100 150 Other: # Voids 1 1 Laboratory Results - Last 24 Hours 09/22/22 09/22/22 09/23/22 17:20 21:08 07:28 WBC RBC Hgb Hct MCV MCH MCHC RDW Plt Count MPV Neutrophils % Lymphocytes % Monocytes % Eosinophils % Basophils % Neutrophils # Lymphocytes # Monocytes # Eosinophils # Basophils # Sodium Potassium Chloride Carbon Dioxide Anion Gap BUN Creatinine Est GFR (CKD-EPI)AfAm Est GFR (CKD-EPI)NonAf Glucose POC Glucose (mg/dL) 130 H 150 H 161 H POC Glu Senior Technical Recruiter ID Grace Huber Jamie Ainsworth, Ashley Calcium 09/23/22 09/23/22 09/23/22 08:17 08:17 12:48 WBC 8.3 RBC 4.30 Hgb 12.8 Hct 37.0 MCV 86.1 MCH 29.9 MCHC 34.7 RDW 14.6 Plt Count 230 MPV 8.0 Neutrophils % 74 Lymphocytes % 19 Monocytes % 6 Eosinophils % 0 Basophils % 0 Neutrophils # 6.2 Lymphocytes # 1.5 Monocytes # 0.5 Eosinophils # 0.0 Basophils # 0.0 Sodium 129 L Potassium 3.4 L Chloride 100 Carbon Dioxide 14 L Anion Gap 15 BUN 4 L Creatinine 0.42 L Est GFR (CKD-EPI)AfAm >90 Est GFR (CKD-EPI)NonAf >90 Glucose 160 H POC Glucose (mg/dL) 144 H POC Glu Senior Technical Recruiter ID Linda Lucero Calcium 8.1 L Assessment Hyperemesis Depressive disorder secondary to general medical condition Plan: -At this time patient DOES NOT meet criteria for inpatient psychiatric admission. Due to the patient not receiving adequate nutrition, we agree with the plan to have the patient transferred for more comprehensive medical and obstetric care. -Would recommend the following medication changes/additions: Continue Zoloft 25 mg daily for anxiety/depression, with plan to slowly titrate as tolerated. -Continue to treat nausea/vomiting as tolerated with giving patient choice of antiemetic cocktail. -Patient does not require one-to-one sitter. -Communicated plan to patient's nurse. -Psychiatry will sign off at this time. -Please contact with any questions.
--- NOTE | 2022-09-23 15:01 | P.DS ---
Providers Date of admission: 09/19/22 15:07 Expected date of discharge: 09/23/22 Attending physician: Meir Rodriguez MD Consults: 09/19/22 15:05 Consult Physician Routine Consulting Provider: Doretha Rodriguez Consult Reason/Comments: hyperemesis, requested by IM Do you want consulting provider notified?: Yes 09/20/22 12:57 Consult Physician Routine Consulting Provider: Moshe Khan Consult Reason/Comments: nausea and vomitting possibly psychiatric in nature, patient Do you want consulting provider notified?: Yes Primary care physician: Stated None Hospital Course: Assessment: Persistent nausea and vomiting High anion gap metabolic acidosis, resolved Ketoacidosis, likely starvation Type I diabetic, on insulin pump at home 13 weeks Leukocytosis, likely reactive, resolved Likely major depressive disorder Hospital Course: 32-year-old female with history of type 1 diabetes on insulin pump, depression presenting with severe nausea and vomiting. Patient is currently 13 weeks . In the ED, temperature was 97.2, pulse 88, respiratory rate 18, blood pressure 109/83, saturating at 100% on room air. WBC 12.6, platelet 154, hemoglobin 11.7, sodium 136, bicarbonate 18, creatinine 0.34, glucose 207, urine positive for glucose and ketones. ultrasound shows single live intrauterine gestation estimated 13 weeks 3 days. Patient was given IV fluids in the ED, Reglan, Benadryl, and Zofran. Patient continues to have vomiting. Patient to be admitted for persistent nausea and vomiting, dehydration, inability to tolerate oral intake, OB consulted. Patient continued to complain about significant nausea and vomiting, but not taking her medications. Blood sugars have been well controlled. Psychiatry consulted as they may be a component of depression/anxiety. They felt the patient did not meet criteria for inpatient hospitalization, and after speaking with her, the patient did rep ort having a desire to get better and reported would have better compliance with medications. However, she was still in able to tolerate by mouth. Therefore, after discussion with JACQUARD CARD LACER as well as psychiatry team, it was felt that she would benefit from transfer to tertiary care due to being considered high risk and maternal medicine not being available in our facility. Therefore, [facility] was engaged regarding transferred, and was accepted by Dr. Warren. I spent 45 minutes coordinating this discharge on 09/23 Gen: awake, alert HEENT: normocephalic, atraumatic, good hearing acuity, moist mucous membranes Resp: good air exchange, breathing comfortably with no accessory muscle use CVS: good distal perfusion x 4, GI: soft, NTTP, ND : no SPT, no CVAT, zapien catheter not present MSK: no pitting edema, no clubbing Neuro: non-focal, moving all extremities Psych: cooperative, euthymic mood Patient Condition at Discharge: Good Plan - Discharge Summary New Discharge Prescriptions: No Action Insulin Aspart (For Pump) [NovoLOG (For Pump)] 0.01 unit SQ-PUMP CONTINUOUS Discharge Medication List Insulin Aspart (For Pump) [NovoLOG (For Pump)] 0.01 unit SQ-PUMP CONTINUOUS 09/19/22 [History] Follow up Appointment(s)/Referral(s): Aime Fairchild MD [STAFF PHYSICIAN] - 1-2 days Patient Instructions/Handouts: Hyperemesis Gravidarum (ED) Activity/Diet/Wound Care/Special Instructions: Please follow up with PCP in 1-2 days. Please see your OBGYN at your scheduled appointment 09/24. Return to the ER for worsening symptoms.
== END 2022-09-23 18:05 | disposition short-term general hospital (02) | DRG 566 ==
LOC: EC 09:12 → 3SCARD 15:07 → 4FBP 18:45
PROVIDERS: ADMIT Student in an Organized Health Care Education/Training Program; ATTEND Student in an Organized Health Care Education/Training Program
DX: O21.1 Hyperemesis gravidarum with metabolic disturbance (principal); E88.89 Other specified metabolic disorders; E86.0 Dehydration; O24.911 Unspecified diabetes mellitus in pregnancy, first trimester; F10.11 Alcohol abuse, in remission; F06.32 Mood disorder due to known physiological condition with major depressive-like episode; F32.9 Major depressive disorder, single episode, unspecified; O99.341 Other mental disorders complicating pregnancy, first trimester; D72.828 Other elevated white blood cell count; T73.0XXA Starvation, initial encounter; T43.226A Underdosing of selective serotonin reuptake inhibitors, initial encounter; T43.3X6A Underdosing of phenothiazine antipsychotics and neuroleptics, initial encounter; T47.0X6A Underdosing of histamine H2-receptor blockers, initial encounter; Z96.41 Presence of insulin pump (external) (internal); Z3A.13 13 weeks gestation of pregnancy; Z79.4 Long term (current) use of insulin; Z79.899 Other long term (current) drug therapy; Z87.59 Personal history of other complications of pregnancy, childbirth and the puerperium; Z86.19 Personal history of other infectious and parasitic diseases; Z87.891 Personal history of nicotine dependence; Z91.199 Patient's noncompliance with other medical treatment and regimen due to unspecified reason; Z91.128 Patient's intentional underdosing of medication regimen for other reason; Z28.310 Unvaccinated for COVID-19
CPT/HCPCS: 36415; 76801; 80048; 80053; 81001; 82009; 82150; 83690; 84702; 85025; 96361; 96374; 96375; 96376; 99285